=== PATIENT | female | born 1970 | race Caucasian/White ===

== ENCOUNTER → 2016-12-24 | Day surgery (SDC) | payer BC, OTHER ==
[~2016-12-24] MED LIST: METHYLPREDNISOLONE ACETATE INJ 40 MG/1 ML ML ONE
== END ==
LOC: EDSTATUS 12:25 → RAD 15:05
PROVIDERS: ATTEND Podiatrist Foot & Ankle Surgery
PROC: 3E0U33Z Introduction of Anti-inflammatory into Joints, Percutaneous Approach (ICD-10-PCS; principal; 2016-12-24)
DX: M20.11 Hallux valgus (acquired), right foot (principal)
CPT/HCPCS: 73660; 77002; 20600; J1020